=== PATIENT | female | born 1975 | race Hispanic/Latino ===

== ENCOUNTER 2018-07-09 19:58 | Emergency (ER) | payer MEDICARE ==
[2018-07-09 20:13] VITALS: BP 109/75
[2018-07-09 20:53] LABS: Basophils % (Auto) 0.3 % (0.0-1.8); Eosinophils # (Auto) 0.5 K/mm3 (0.0-0.4); Eosinophils % (Auto) 7.4 % (0.0-4.3); Hematocrit 37.7 % (30.3-42.9); Hemoglobin 13.1 gm/dl (10.1-14.3); Lymphocytes # (Auto) 1.6 K/mm3 (1.2-5.4); Mean Corpuscular HGB Conc 35 % (30-34); Mean Corpuscular Volume 98 fl (79-97); Monocytes # (Auto) 0.3 K/mm3 (0.0-0.8); Platelet Count 212 K/mm3 (140-440); Red Blood Count 3.83 M/mm3 (3.65-5.03); Red Cell Distribution Width 13.7 % (13.2-15.2)
[2018-07-09 21:45] LABS: Alanine Aminotransferase 8 units/L (7-56); Albumin 4.5 g/dL (3.9-5); BUN/Creatinine Ratio 25; Blood Urea Nitrogen 15 mg/dL (7-17); Calcium 8.8 mg/dL (8.4-10.2); Hemolysis Index 13
[2018-07-09 22:07] LABS: Bilirubin,Urine NEG (Negative); Blood,Urine NEG (Negative); Color,Urine Yellow (Yellow); Mucus,Urine FEW /HPF; Urobilinogen,Urine < 2.0 mg/dL (<2.0)
[2018-07-09] MEDS ORDERED: BENADRYL PO ONE (22:52)
[2018-07-09] MEDS ORDERED: TYLENOL PO ONE (22:54)
--- NOTE | 2018-07-09 23:50 | Emergency Department Report ---
- General Chief Complaint: Abdominal Pain Stated Complaint: FEVER/THROWING UP/SORE THROAT/BODYACHE Time Seen by Provider: 07/09/18 22:52 Source: patient Mode of arrival: Ambulatory Limitations: No Limitations - History of Present Illness Initial Comments: pt is a 43 y/o w/f who presenst for sinus pain pressure head congestion and sore throat , states post nasal drip causing n/v , now with noc fever no fever noted tonight in triage MD Complaint: fever, sore throat, rhinorrhea, nasal congestion, sinus pain Onset/Timin -: days(s) Severity: moderate Severity scale (0 -10): 4 Quality: sharp Consistency: constant Improves With: nothing Worsens With: activity Context: sick contacts Associated Symptoms: fever, rhinorrhea, nasal congestion, sore throat, nausea, vomiting Treatments Prior to Arrival: none - Related Data Previous Rx's Medication Instructions Recorded Last Taken Type Acetaminophen [Acetaminophen TAB] 1,000 mg PO Q6HR PRN #30 tablet 07/09/18 Unknown Rx Clindamycin [Clindamycin CAP] 300 mg PO Q8H 10 Days #30 cap 07/09/18 Unknown Rx Metoclopramide [Reglan] 10 mg PO TID PRN #20 tab 07/09/18 Unknown Rx diphenhydrAMINE [Benadryl CAP] 25 mg PO TID PRN #30 capsule 07/09/18 Unknown Rx Allergies Allergy/AdvReac Type Severity Reaction Status Date / Time cephalexin [From Keflex] Allergy Itching Verified 07/09/18 20:03 ketorolac [From Toradol] Allergy Itching Verified 07/09/18 20:02 levofloxacin [From Levaquin] Allergy Rash Verified 07/09/18 20:03 Sulfa (Sulfonamide Allergy Anaphylaxis Verified 07/09/18 20:02 Antibiotics) ED Review of Systems ROS: Stated complaint: FEVER/THROWING UP/SORE THROAT/BODYACHE Other details as noted in HPI Constitutional: denies: chills, fever Eyes: denies: eye pain, eye discharge, vision change ENT: ear pain, throat pain, congestion Respiratory: cough. denies: shortness of breath, wheezing Cardiovascular: denies: chest pain, palpitations Endocrine: no symptoms reported Gastrointestinal: denies: abdominal pain, nausea, diarrhea Genitourinary: denies: urgency, dysuria, discharge Musculoskeletal: denies: back pain, joint swelling, arthralgia Skin: denies: rash, lesions Neurological: denies: headache, weakness, paresthesias Psychiatric: denies: anxiety, depression Hematological/Lymphatic: denies: easy bleeding, easy bruising ED Past Medical Hx - Past Medical History Previous Medical History?: Yes Additional medical history: MS, Fibromyalgia, neurapathy, Vision problems - Surgical History Past Surgical History?: Yes Hx Cholecystectomy: Yes Additional Surgical History: Two hip surgeries, Hysterectomy, Left Knee surgery - Social History Smoking Status: Current Every Day Smoker Substance Use Type: None - Medications Home Medications: Home Medications Medication Instructions Recorded Confirmed Last Taken Type Acetaminophen [Acetaminophen TAB] 1,000 mg PO Q6HR PRN #30 tablet 07/09/18 Unknown Rx Clindamycin [Clindamycin CAP] 300 mg PO Q8H 10 Days #30 cap 07/09/18 Unknown Rx Metoclopramide [Reglan] 10 mg PO TID PRN #20 tab 07/09/18 Unknown Rx diphenhydrAMINE [Benadryl CAP] 25 mg PO TID PRN #30 capsule 07/09/18 Unknown Rx ED Physical Exam - General Limitations: No Limitations General appearance: alert, in no apparent distress - Head Head exam: Present: atraumatic, normocephalic - Eye Eye exam: Present: normal appearance, PERRL, EOMI Pupils: Present: normal accommodation - ENT ENT exam: Present: mucous membranes moist, TM's normal bilaterally, normal external ear exam - Expanded ENT Exam Expanded Ear exam: Present: normal external inspection, other (bilat maxillary sinus pain and pressure turbinate edema boggy erythema clear post nasal drip sinus pain to palpaiton mild erythema mild swelling ) Throat exam: Positive: tonsillar erythema, other (uvula midline no stridor no wheezing ). Negative: tonsillomegaly, tonsillar exudate, R peritonsillar mass, L peritonsillar mass - Neck Neck exam: Present: normal inspection, full ROM. Absent: tenderness, meningismus, lymphadenopathy, thyromegaly - Respiratory Respiratory exam: Present: normal lung sounds bilaterally. Absent: respiratory distress, wheezes, stridor, chest wall tenderness - Cardiovascular Cardiovascular Exam: Present: regular rate, normal rhythm, normal heart sounds. Absent: systolic murmur, diastolic murmur, rubs, gallop - GI/Abdominal GI/Abdominal exam: Present: soft, normal bowel sounds. Absent: distended, tenderness, guarding, rebound, rigid, bruit, hernia - Rectal Rectal exam: Present: deferred - Extremities Exam Extremities exam: Present: normal inspection, full ROM, normal capillary refill. Absent: tenderness - Back Exam Back exam: Present: normal inspection, full ROM. Absent: tenderness, rash noted - Neurological Exam Neurological exam: Present: alert, oriented X3, CN II-XII intact, normal gait - Psychiatric Psychiatric exam: Present: normal affect, normal mood - Skin Skin exam: Present: warm, dry, intact, normal color. Absent: rash ED Course Vital Signs 07/09/18 20:08 Temperature 98.2 F Pulse Rate 78 Respiratory 16 Rate Blood Pressure 109/75 O2 Sat by Pulse 98 Oximetry ED Medical Decision Making - Lab Data Result diagrams: 07/09/18 20:38 07/09/18 20:38 Labs 07/09/18 07/09/18 07/09/18 20:34 20:38 20:38 WBC 6.3 RBC 3.83 Hgb 13.1 Hct 37.7 MCV 98 H MCH 34 H MCHC 35 H RDW 13.7 Plt Count 212 Lymph % (Auto) 25.0 [place] % (Auto) 5.0 Eos % (Auto) 7.4 H Baso % (Auto) 0.3 Lymph # 1.6 [place] # 0.3 Eos # 0.5 H Baso # 0.0 Seg Neutrophils % 62.3 Seg Neutrophils # 3.9 Sodium 144 Potassium 4.3 Chloride 108.1 H Carbon Dioxide 24 Anion Gap 16 BUN 15 Creatinine 0.6 L Estimated GFR > 60 BUN/Creatinine Ratio 25 Glucose 96 Calcium 8.8 Total Bilirubin < 0.20 AST 14 ALT 8 Alkaline Phosphatase 75 Total Protein 6.6 Albumin 4.5 Albumin/Globulin Ratio 2.1 Urine Color Yellow Urine Turbidity Clear Urine pH 5.0 Ur Specific [place] 1.016 Urine Protein 30 mg/dl Urine Glucose (UA) Neg Urine Ketones Neg Urine Blood Neg Urine Nitrite Neg Urine Bilirubin Neg Urine Urobilinogen < 2.0 Ur Leukocyte Esterase Neg Urine WBC (Auto) 1.0 Urine RBC (Auto) 3.0 U Epithel Cells (Auto) 1.0 Urine Mucus Few - Medical Decision Making this is sinusitis with uri, plan tx for same pt will follow up with her pcp in 2 days , dc to home with rx for clindamycin, tylenol, benadryl., reglan. Critical care attestation.: If time is entered above; I have spent that time in minutes in the direct care of this critically ill patient, excluding procedure time. ED Disposition Clinical Impression: Sinusitis Qualifiers: Sinusitis location: maxillary Chronicity: acute Recurrence: non-recurrent Qualified Code(s): J01.00 - Acute maxillary sinusitis, unspecified Disposition: DC-01 TO HOME OR SELFCARE Is pt being admited?: No Does the pt Need Aspirin: No Condition: Stable Instructions: Abdominal Pain (ED) Prescriptions: Acetaminophen [Acetaminophen TAB] 1,000 mg PO Q6HR PRN #30 tablet PRN Reason: pain fever diphenhydrAMINE [Benadryl CAP] 25 mg PO TID PRN #30 capsule PRN Reason: congestion nausea Clindamycin [Clindamycin CAP] 300 mg PO Q8H 10 Days #30 cap Metoclopramide [Reglan] 10 mg PO TID PRN #20 tab PRN Reason: Nausea And Vomiting Referrals: [facility] [Outside] - 3-5 Days Forms: Work/School Release Form(ED) Time of Disposition: 23:50
== END 2018-07-09 23:56 | disposition home or self-care (01) ==
LOC: EDBD → ED 19:58
DX: J01.00 Acute maxillary sinusitis, unspecified (principal); F17.200 Nicotine dependence, unspecified, uncomplicated; Z90.49 Acquired absence of other specified parts of digestive tract; Z90.710 Acquired absence of both cervix and uterus; Z88.6 Allergy status to analgesic agent; Z88.1 Allergy status to other antibiotic agents; Z88.2 Allergy status to sulfonamides; Z88.8 Allergy status to other drugs, medicaments and biological substances
CPT/HCPCS: 36415; 80053; 81001; 85025; 99283